=== PATIENT | female | born 1995 | race Caucasian/White ===

== ENCOUNTER 2018-09-04 12:22 | Emergency (ER) | payer OTHER ==
[2018-09-04 12:28] VITALS: BP 124/76
--- NOTE | 2018-09-04 13:39 | RADIOLOGY REPORT (SQ) ---
EXAM DESCRIPTION: NOSE/NASAL BONES COMPLETED DATE/TIME: 09/04/2018 1:26 pm REASON FOR STUDY: eval for nasal bone fx COMPARISON: None. NUMBER OF VIEWS: Three view. TECHNIQUE: Images of the facial bones acquired. LIMITATIONS: None. FINDINGS: Nondisplaced fracture tip of the nasal bones. Soft tissue deformity of the nasal bones. Otherwise no fracture or bony abnormality seen. . IMPRESSION: Nondisplaced fracture tip of the nasal bones. TECHNICAL DOCUMENTATION: JOB ID: [id number] [employer]- All Rights Reserved Reading location - IP/workstation name: [email or web address]
--- NOTE | 2018-09-04 13:58 | ER Document Report ---
HPI - HPI Pain Level: 2 Notes: Patient is a 23-year-old female who presents with chief complaint of nasal bone pain. Patient reports she was playing basketball with her friend when he accidentally elbowed her in the face. She did not lose consciousness or fall and hit her head. - CONSTITUTIONAL Constitutional: DENIES: Fever, Chills - EENT EENT: DENIES: Sore Throat, Ear Pain, Eye problems - NEURO Neurology: DENIES: Headache, Weakness, Vision blurred, Dizzinesss / Vertigo - CARDIOVASCULAR Cardiovascular: DENIES: Chest pain - RESPIRATORY Respiratory: DENIES: Trouble Breathing, Coughing - GASTROINTESTINAL Gastrointestinal: DENIES: Abdominal Pain, Black / Bloody Stools - MUSCULOSKELETAL Musculoskeletal: REPORTS: Extremity pain Past Medical History - General Information source: Patient - Social History Smoking Status: Never Smoker Chew tobacco use (# tins/day): No Frequency of alcohol use: None Drug Abuse: None Family History: Reviewed & Not Pertinent Patient has suicidal ideation: No Patient has homicidal ideation: No - Medical History Medical History: Negative Renal/ Medical History: Denies: Hx Peritoneal Dialysis Surgical Hx: Negative - Immunizations Immunizations up to date: Yes Hx Diphtheria, Pertussis, Tetanus Vaccination: Yes Vertical Provider Document - CONSTITUTIONAL Notes: PHYSICAL EXAMINATION: GENERAL: Well-appearing, well-nourished and in no acute distress. HEAD: Atraumatic, normocephalic. EYES: Pupils equal round extraocular movements intact, conjunctiva are normal. ENT: Nares patent NECK: Normal range of motion LUNGS: No respiratory distress Musculoskeletal: Normal range of motion NEUROLOGICAL: Normal speech, normal gait. PSYCH: Normal mood, normal affect. SKIN: Warm, Dry, normal turgor, no rashes or lesions noted. Small 0.5 cm laceration over the bridge of patient's nose, well approximated and superficial. No active bleeding noted. - INFECTION CONTROL TRAVEL OUTSIDE OF THE [place] IN LAST 30 DAYS: No Course - Re-evaluation Re-evalutation: 0.5 cm laceration was repaired with Dermabond. X-ray reveals distal nondisplaced fracture to the tip of the nose. Reassured patient that with time , swelling will subside and that there is nothing for us to do with the nasal bone fracture at this time. The area of laceration is nowhere near the fracture. No concern for open fracture. There is no nasal hematoma noted. Patient will be discharged home in stable condition. - Vital Signs Vital signs: Temp Pulse Resp BP Pulse Ox 98.2 F 74 14 124/76 100 09/04/18 12:27 09/04/18 12:27 09/04/18 12:27 09/04/18 12:27 09/04/18 12:27 Procedures - Laceration/Wound Repair nasal Wound length (cm): 0.5 Wound's Depth, Shape: Superficial Laceration pre-procedure: Sterile PPE donned Anesthetic type: 1% Lidocaine Wound Repaired With: Dermabond Discharge - Discharge Clinical Impression: Laceration Nasal bone fracture Qualifiers: Encounter type: initial encounter Fracture type: closed Qualified Code(s): S02.2XXA - Fracture of nasal bones, initial encounter for closed fracture Condition: Stable Disposition: HOME, SELF-CARE Additional Instructions: Nasal Foreign Body Examination showed a foreign body in the nose. Material in the nose can lead to pain, swelling, and infection. It must be removed promptly. Usually no further treatment is necessary following removal. If infection is already present, the physician may prescribe antibiotics. If there is continued drainage (particularly if it is foul smelling), nasal or sinus pain, fever, headache, or inability to breathe through one nostril, re- examination is necessary. Dermabond (Skin Adhesive Closure) Skin adhesive (such as Dermabond) is a quick-drying glue that remains slightly flexible while it holds wound edges together. It can substitute for stitches on some cuts. The film will usually fall off the skin after 5 to 10 days. Keep the wound area clean and dry. Do not soak or scrub the wound. Don't swim. You can shower briefly after 24 hours. Gently blot the area dry with a soft towel. Don't apply ointments. If there is a dressing, change it immediately if it gets wet. Do not place tape directly over the adhesive film, because the tape may pull the film off your skin as you remove it. Don't bump the wound area. If there's risk of injury, keep the area well- padded. Avoid stretching of the skin. Do not scratch or pick at the adhesive film. Avoid prolonged exposure to sunlight or tanning lamps. Return if there is increasing pain, swelling, redness, or drainage, or if the wound edges seem to open or separate. Allow the Dermabond to fall off on its own, do not apply any ointments or creams to it, do not apply any makeup to it. There is a fracture to the very tip of your nasal bone. It is not displaced. This will likely heal up with no difficulty. There is soft tissue swelling to the upper part of your nose near where the laceration is. Allow this swelling to subside over the next 1-2 weeks. If you are unhappy with the way that your nose looks once all of the swelling has resolved you may consult with a plastic surgeon.
== END 2018-09-04 14:06 | disposition home or self-care (01) ==
LOC: ER 12:22
PROC: 0HQ1XZZ Repair Face Skin, External Approach (ICD-10-PCS; principal; 2018-09-04)
DX: S02.2XXA Fracture of nasal bones, initial encounter for closed fracture (principal); J34.89 Other specified disorders of nose and nasal sinuses; W51.XXXA Accidental striking against or bumped into by another person, initial encounter; Y93.67 Activity, basketball
CPT/HCPCS: 70160; 99283